=== PATIENT | female | born 1985 | race Caucasian/White ===

== ENCOUNTER 2017-05-05 00:08 | Emergency (ER) | payer MEDICAID ==
[~2017-05-05 00:08] MED LIST: A20IH1 IH; ACET125T2 PO; ACET500C50 PO; ALPR-411 PO; CETI10CA5 PO; CLON1TAB23 PO; CLON2TAB4 PO; DIPH1TAB PO; GABA-318 PO; GABA-529 PO; METH-425 PO; ONDA4TAB4 PO; PANT40TA25 PO; PROM25SU58 RC; SERT50TA PO
[2017-05-05 01:14] LABS: APPEARANCE,URINE Cloudy (CLEAR); BILIRUBIN,URINE Negative (NEGATIVE); COLOR,URINE Yellow (YELLOW); GLUCOSE, URINE (UA) Negative (NEGATIVE); KETONES,URINE Negative (NEGATIVE); LEUKOCYTE ESTERASE ,URINE Trace (NEGATIVE); NITRATE,URINE Negative (NEGATIVE); OCCULT BLOOD,URINE Large (NEGATIVE); PROTEIN,URINE Negative (NEGATIVE)
[2017-05-05 01:18] LABS: HCG,QUAL RESULT NEGATIVE (NEGATIVE)
[2017-05-05 01:20] LABS: BACTERIA,URINE Few /HPF (None Seen); WBC,URINE 0-1 /HPF (0-1)
== END 2017-05-05 01:56 | disposition home or self-care (01) ==
LOC: EDH 00:08
DX: R10.32 Left lower quadrant pain (principal); F31.9 Bipolar disorder, unspecified; F43.10 Post-traumatic stress disorder, unspecified; E28.2 Polycystic ovarian syndrome; Z88.8 Allergy status to other drugs, medicaments and biological substances; Z79.899 Other long term (current) drug therapy; Z72.0 Tobacco use
CPT/HCPCS: 81001; 81025

== ENCOUNTER 2018-10-20 19:39 | Emergency (ER) | payer MEDICAID ==
[~2018-10-20 19:39] MED LIST changes: +CLON2TAB11 PO; -CLON2TAB4 PO; -GABA-318 PO; +GABA600T10 PO
[2018-10-20 20:24] LABS: APPEARANCE,URINE Cloudy (CLEAR); BILIRUBIN,URINE Negative (NEGATIVE); COLOR,URINE Yellow (YELLOW); GLUCOSE, URINE (UA) Negative (NEGATIVE); KETONES,URINE Negative (NEGATIVE); LEUKOCYTE ESTERASE ,URINE Small (NEGATIVE); NITRATE,URINE Negative (NEGATIVE); OCCULT BLOOD,URINE Moderate (NEGATIVE); PROTEIN,URINE Negative (NEGATIVE)
[2018-10-20 20:28] LABS: HCG,QUAL RESULT NEGATIVE (NEGATIVE)
[2018-10-20 20:33] LABS: BACTERIA,URINE Moderate /HPF (None Seen); MUCUS,URINE Few LPF (None Seen)
[2018-10-20 20:34] LABS: AMPHET/METH SCREEN,URINE NEGATIVE (NEGATIVE); BARBITURATE SCREEN, URINE NEGATIVE (NEGATIVE); BENZODIAZEPINES SCREEN,URINE NEGATIVE (NEGATIVE); CANNABINOID SCREEN,URINE NEGATIVE (NEGATIVE); COCAINE SCREEN,URINE NEGATIVE (NEGATIVE); OPIATE SCREEN,URINE NEGATIVE (NEGATIVE); PHENCYCLIDINE SCREEN,URINE NEGATIVE (NEGATIVE)
== END 2018-10-20 20:52 | disposition home or self-care (01) ==
LOC: EDH 19:39
DX: N39.0 Urinary tract infection, site not specified (principal); E86.9 Volume depletion, unspecified; H81.399 Other peripheral vertigo, unspecified ear; F41.9 Anxiety disorder, unspecified; F31.9 Bipolar disorder, unspecified; Z88.8 Allergy status to other drugs, medicaments and biological substances; Z88.6 Allergy status to analgesic agent
CPT/HCPCS: 80305; 81001; 81025

== ENCOUNTER 2020-05-02 20:28 | Observation (INO) | payer MEDICAID ==
[~2020-05-02] VITALS: Ht 152.4 cm; Wt 78.5 kg
[~2020-05-02 20:28] MED LIST changes: -PANT40TA25 PO; +PANT40TA54 PO
[2020-05-02 21:12] LABS: APPEARANCE,URINE Clear (CLEAR); BILIRUBIN,URINE Negative (NEGATIVE); COLOR,URINE Yellow (YELLOW); GLUCOSE, URINE (UA) 250 mg/dL (NEGATIVE); KETONES,URINE Negative (NEGATIVE); LEUKOCYTE ESTERASE ,URINE Moderate (NEGATIVE); NITRATE,URINE Negative (NEGATIVE); OCCULT BLOOD,URINE Negative (NEGATIVE); PROTEIN,URINE Negative (NEGATIVE); UROBILINOGEN,URINE 0.2 mg/dL (0.2-1.0)
[2020-05-02 21:21] LABS: RBC,URINE 0-1 /HPF (0-1)
[2020-05-02 21:22] LABS: BACTERIA,URINE Few /HPF (None Seen)
[2020-05-02 21:23] LABS: SQUAMOUS EPITHELIAL CELL,UR Moderate /HPF (0-2)
[2020-05-02 21:34] LABS: AMPHET/METH SCREEN,URINE NEGATIVE (NEGATIVE); BARBITURATE SCREEN, URINE NEGATIVE (NEGATIVE); BENZODIAZEPINES SCREEN,URINE NEGATIVE (NEGATIVE); CANNABINOID SCREEN,URINE NEGATIVE (NEGATIVE); COCAINE SCREEN,URINE NEGATIVE (NEGATIVE); OPIATE SCREEN,URINE NEGATIVE (NEGATIVE); PHENCYCLIDINE SCREEN,URINE NEGATIVE (NEGATIVE)
== END 2020-05-02 22:30 | disposition home or self-care (01) ==
LOC: EDH 20:28 → LDH 20:47
PROVIDERS: ADMIT Specialist; ATTEND Specialist
DX: O26.893 Other specified pregnancy related conditions, third trimester (principal); R10.30 Lower abdominal pain, unspecified; O16.3 Unspecified maternal hypertension, third trimester; O99.343 Other mental disorders complicating pregnancy, third trimester; F41.9 Anxiety disorder, unspecified; F31.9 Bipolar disorder, unspecified; F43.10 Post-traumatic stress disorder, unspecified; O99.353 Diseases of the nervous system complicating pregnancy, third trimester; G40.909 Epilepsy, unspecified, not intractable, without status epilepticus; Z86.32 Personal history of gestational diabetes; Z87.19 Personal history of other diseases of the digestive system; Z87.39 Personal history of other diseases of the musculoskeletal system and connective tissue; Z79.899 Other long term (current) drug therapy; Z88.6 Allergy status to analgesic agent; Z88.8 Allergy status to other drugs, medicaments and biological substances; Z3A.34 34 weeks gestation of pregnancy
CPT/HCPCS: 80305; 81001; 87088; 99284; G0378 ×2

== ENCOUNTER 2020-05-13 11:20 | Observation (INO) | payer MEDICAID | END 2020-05-13 14:56 | disposition home or self-care (01) | LOC: LDH 11:20 | PROVIDERS: ADMIT Specialist; ATTEND Specialist | DX: O24.419 Gestational diabetes mellitus in pregnancy, unspecified control (principal); Z3A.34 34 weeks gestation of pregnancy | CPT/HCPCS: 59025; 76819; G0378 ×3 ==

== ENCOUNTER 2020-05-24 19:12 | Inpatient (IN) | payer MEDICAID ==
[~2020-05-24] VITALS: Ht 152.4 cm; Wt 80.3 kg
[2020-05-24] MEDS ORDERED: LACTATED RINGERS 500 ML 500 ML IV PRN (19:30)
[2020-05-24] MEDS ORDERED: ROPIVACAINE 0.2% 100ML VIAL 100 ML EP PRN (19:30)
[2020-05-24] MEDS ORDERED: EPHEDRINE SULFATE 50 MG/ML AMPULE IVP PRN (19:30)
[2020-05-24] MEDS ORDERED: NALOXONE HCL 0.4 MG/1 ML ML IV PRN (19:30)
[2020-05-24] MEDS ORDERED: OXYTOCIN-LR 20 UNITS/1000 ML 1,000 ML IV SCH (19:30)
[2020-05-24 20:02] LABS: APPEARANCE,URINE Cloudy (CLEAR); BILIRUBIN,URINE Negative (NEGATIVE); COLOR,URINE Yellow (YELLOW); GLUCOSE, URINE (UA) Negative (NEGATIVE); KETONES,URINE Negative (NEGATIVE); LEUKOCYTE ESTERASE ,URINE Large (NEGATIVE); NITRATE,URINE Negative (NEGATIVE); OCCULT BLOOD,URINE Large (NEGATIVE); PROTEIN,URINE Negative (NEGATIVE); UROBILINOGEN,URINE 0.2 mg/dL (0.2-1.0)
[2020-05-24 20:13] LABS: BACTERIA,URINE Moderate /HPF (None Seen); MUCUS,URINE Few LPF (None Seen); SQUAMOUS EPITHELIAL CELL,UR Few /HPF (0-2)
[2020-05-24] MEDS ORDERED: AMPICILLIN 2GM+NS 100ML 100 ML IV SCH (20:30)
[2020-05-24] MEDS: LACTATED RINGERS 1000ML 1,000 ML IV PRN (21:15)
[2020-05-24] MEDS: MISOPROSTOL 100 MCG TABLET VG SCH (21:17)
[2020-05-24 21:27] LABS: HEMATOCRIT 36.3 % (36-48); MEAN CORPUSCULAR HEMOGLOBIN 30.8 pg (27.0-33.0); MEAN CORPUSCULAR VOLUME 88.1 fL (79-99); RED BLOOD CELL COUNT(AUTO) 4.12 MIL/uL (4.00-5.50); RED CELL DISTRIBUTION WIDTH 14.2 % (11.0-15.5); WHITE BLOOD COUNT (AUTO) 10.9 K/uL (4.8-10.8)
[2020-05-24 21:38] VITALS: BP 123/81
[2020-05-24] MEDS ORDERED: ACET500I IVP (21:52)
[2020-05-24] MEDS ORDERED: MELA1TAB21 PO (21:52)
[2020-05-24] MEDS ORDERED: PREN1TAB80 PO (21:52)
[2020-05-24 22:10] LABS: AMPHET/METH SCREEN,URINE NEGATIVE (NEGATIVE); BARBITURATE SCREEN, URINE NEGATIVE (NEGATIVE); BENZODIAZEPINES SCREEN,URINE NEGATIVE (NEGATIVE); CANNABINOID SCREEN,URINE NEGATIVE (NEGATIVE); COCAINE SCREEN,URINE NEGATIVE (NEGATIVE); OPIATE SCREEN,URINE NEGATIVE (NEGATIVE); PHENCYCLIDINE SCREEN,URINE NEGATIVE (NEGATIVE)
[2020-05-24] MEDS ORDERED: ACETAMINOPHEN 500 MG TABLET ONE (22:25)
[2020-05-24] MEDS ORDERED: DIPHENHYDRAMINE HCL 25 MG CAPSULE PO PRN (22:30)
[2020-05-24] MEDS ORDERED: ACETAMINOPHEN 500 MG TABLET PO PRN (22:30)
[2020-05-25] MEDS: AMPICILLIN 1GM+NS 50ML 50 ML IV SCH ×4 (00:45→12:30)
[2020-05-25] MEDS: MISOPROSTOL 100 MCG TABLET VG SCH (03:15)
[2020-05-25] MEDS ORDERED: OXYTOCIN-LR 20 UNITS/1000 ML 1,000 ML IV SCH (05:00)
[2020-05-25] MEDS: LACTATED RINGERS 1000ML 1,000 ML IV PRN ×3 (08:15→13:53)
[2020-05-25 09:15] LABS: RAPID PLASMA REAGIN NONREACTIVE (NONREACTIVE)
[2020-05-25] MEDS ORDERED: CEFAZOLIN SODIUM 1 GM VIAL ONE (12:28)
[2020-05-25] MEDS ORDERED: LIDOCAINE 2%-EPI 1:200,000 20 ML VIAL IJ ONE (12:34)
[2020-05-25] MEDS ORDERED: FENTANYL CITRATE PF 50 MCG/1 ML 2ML VIAL ONE (12:37)
[2020-05-25] MEDS ORDERED: CEFAZOLIN SODIUM 1 GM VIAL IVP ONE (12:55)
[2020-05-25] MEDS ORDERED: ONDANSETRON 4MG INJ ONE (13:02)
[2020-05-25] MEDS ORDERED: MORPHINE PF 100MG/10ML AMP IV ONE (13:18)
[2020-05-25] MEDS ORDERED: PHENYLEPHRINE HCL 10 MG/ML 1ML VIAL IV ONE (13:24)
[2020-05-25] MEDS ORDERED: ACETAMINOPHEN WITH CODEINE 1 TAB TAB PO PRN (15:45)
[2020-05-25] MEDS ORDERED: 0.9%NACL 10ML VIAL IVP PRN (15:45)
[2020-05-25] MEDS ORDERED: OXYTOCIN-LR 20 UNITS/1000 ML 1,000 ML IV PRN (15:45)
[2020-05-25] MEDS ORDERED: DiphenhydrAMINE HCL 50 MG/ML VIAL ONE (16:09)
[2020-05-25] MEDS: MEPERIDINE-PF 75 MG/ML SYG IM PRN ×2 (16:13→21:44)
[2020-05-25] MEDS: PROMETHAZINE HCL 25 MG/ML 1ML AMPULE IM PRN ×2 (16:13→21:42)
[2020-05-25 16:16] VITALS: BP 121/70
[2020-05-25 19:33] VITALS: BP 132/68
[2020-05-25] MEDS: DEXTROSE 5 %-0.45 % NACL 1,000 ML IV PRN (21:53)
[2020-05-25 23:03] VITALS: BP 101/60
[2020-05-26 03:21] VITALS: BP 104/59
[2020-05-26] MEDS: DEXTROSE 5 %-0.45 % NACL 1,000 ML IV PRN (05:49)
[2020-05-26 06:25] LABS: HEMATOCRIT 32.2 % (36-48); MEAN CORPUSCULAR HEMOGLOBIN 29.8 pg (27.0-33.0); MEAN CORPUSCULAR HGB CONC 33.5 g/dL (32.0-36.0); RED BLOOD CELL COUNT(AUTO) 3.62 MIL/uL (4.00-5.50); RED CELL DISTRIBUTION WIDTH 13.7 % (11.0-15.5); WHITE BLOOD COUNT (AUTO) 11.5 K/uL (4.8-10.8)
[2020-05-26 07:16] LABS: HEPATITIS Bs ANTIGEN SCREEN P Negative (Negative)
[2020-05-26 07:25] VITALS: BP 113/66
[2020-05-26] MEDS ORDERED: HYDROCODONE/ACETAMINOPHEN 5/325 MG TAB PO PRN (08:45)
[2020-05-26] MEDS ORDERED: LANOLIN 30GM OINTMENT TP PRN (08:45)
[2020-05-26] MEDS ORDERED: BISACODYL 10 MG SUPP.RECT RC PRN (08:45)
[2020-05-26] MEDS ORDERED: ACETAMINOPHEN 500 MG TABLET PO PRN (08:45)
[2020-05-26] MEDS: DOCUSATE SODIUM 100 MG CAP PO SCH ×2 (08:53→21:07)
[2020-05-26] MEDS: SIMETHICONE 80 MG TAB.CHEW PO PRN ×3 (08:53→21:07)
[2020-05-26] MEDS: IBUPROFEN 800 MG TAB PO SCH ×2 (08:54→16:24)
[2020-05-26 11:20] VITALS: BP 143/84
[2020-05-26 16:42] VITALS: BP 132/82
[2020-05-26] MEDS: DIPH,PERTUSS(ACELL),TET VAC/PF 0.5 ML VIAL IM SCH ×2 (18:09→20:32)
[2020-05-26] MEDS: ACETAMINOPHEN WITH CODEINE 1 TAB TAB PO PRN ×2 (18:10→22:40)
[2020-05-26 19:35] VITALS: BP 125/80
[2020-05-26 23:17] VITALS: BP 132/74
[2020-05-27] MEDS: IBUPROFEN 800 MG TAB PO SCH ×2 (00:46→09:14)
[2020-05-27 02:35] VITALS: BP 122/64
[2020-05-27] MEDS: ACETAMINOPHEN WITH CODEINE 1 TAB TAB PO PRN (04:11)
[2020-05-27 07:19] VITALS: BP 127/79
[2020-05-27] MEDS: DOCUSATE SODIUM 100 MG CAP PO SCH (09:13)
[2020-05-27] MEDS: SIMETHICONE 80 MG TAB.CHEW PO PRN ×2 (09:13→13:51)
[2020-05-27 11:08] VITALS: BP 140/81
== END 2020-05-27 14:40 | disposition home or self-care (01) | DRG 540 ==
LOC: LDH 19:12 → WSH 05-25 16:10
PROVIDERS: ADMIT Specialist; ATTEND Specialist
PROC: 10D00Z1 Extraction of Products of Conception, Low, Open Approach (ICD-10-PCS; principal; 2020-05-25 12:45)
DX: O35.8XX0 Maternal care for other (suspected) fetal abnormality and damage, not applicable or unspecified (principal); O99.354 Diseases of the nervous system complicating childbirth; O24.420 Gestational diabetes mellitus in childbirth, diet controlled; F31.9 Bipolar disorder, unspecified; G93.2 Benign intracranial hypertension; O99.344 Other mental disorders complicating childbirth; F41.9 Anxiety disorder, unspecified; O99.824 Streptococcus B carrier state complicating childbirth; Z3A.37 37 weeks gestation of pregnancy; Z37.0 Single live birth; Z88.8 Allergy status to other drugs, medicaments and biological substances
CPT/HCPCS: 36415; 59510; 80305; 81001; 82947; 85027; 86592; 86701; 86850; 86900; 86901; 87088; 87340; 87390; 90715; A4314; A4344; G0378; J0290; J0690; J1200; J2175; J2274; J2370; J2405; J2550; J2590; J2795; J3010; J3490; J7120; Q0163

== ENCOUNTER → 2021-04-18 | Outpatient (CLI) | payer MEDICAID ==
[~2021-04-18] MED LIST changes: +ACET500I IVP; +CEPH500B PO; +DICY20TA2 PO; +MELA1TAB21 PO; +PREN1TAB80 PO
== END | disposition home or self-care (01) ==
LOC: RAH 10:38
PROVIDERS: ATTEND Internal Medicine Gastroenterology
DX: K30 Functional dyspepsia (principal)
CPT/HCPCS: 78264; A9541

== ENCOUNTER 2022-01-28 17:56 | Emergency (ER) | payer BC, MEDICAID ==
[~2022-01-28] VITALS: Ht 152.4 cm; Wt 77.6 kg
[~2022-01-28 17:56] MED LIST changes: -MELA1TAB21 PO; +MELA1TAB73 PO
[2022-01-28 20:00] VITALS: BP 125/68
[2022-01-28] MEDS ORDERED: CYCLOBENZAPRINE HCL 10 MG TABLET PO ONE (20:30)
[2022-01-28] MEDS ORDERED: KETOROLAC 30MG VIAL (30MG/ML) IM ONE (20:30)
[2022-01-28] MEDS ORDERED: 0.9%NACL 1000ML 1,000 ML IV SCH (20:30)
== END 2022-01-28 21:16 | disposition home or self-care (01) ==
LOC: EDH 17:56
DX: S39.012A Strain of muscle, fascia and tendon of lower back, initial encounter (principal); F41.9 Anxiety disorder, unspecified; M19.90 Unspecified osteoarthritis, unspecified site; Z79.1 Long term (current) use of non-steroidal anti-inflammatories (NSAID); Z79.899 Other long term (current) drug therapy; Z87.19 Personal history of other diseases of the digestive system; Z88.5 Allergy status to narcotic agent; Z88.8 Allergy status to other drugs, medicaments and biological substances; X58.XXXA Exposure to other specified factors, initial encounter; Y93.89 Activity, other specified; Y92.89 Other specified places as the place of occurrence of the external cause; Y99.8 Other external cause status
CPT/HCPCS: 99283; 96372; J1885